=== PATIENT | female | born 1960 | race African-American/Black ===

== ENCOUNTER 2016-10-21 06:20 | Emergency (ER) | payer MEDICARE, OTHER ==
[~2016-10-21] VITALS: Ht 157.5 cm; Wt 56.2 kg
[~2016-10-21 06:20] MED LIST: ACET325T9 PO; ACYC400T PO; ALIS1TAB2 PO; AMOX1TAB11 PO; AZIT250T PO; BENZ200C39 PO; BUPR150T6 PO; CLON0.1T PO; CLON0.5T3 PO; GABA-586 PO; HYDR-971 PO; HYDR25TA PO; HYDR25TA9 PO; METH-37 PO; METO50TA2 PO; OMEP40CA5 PO; ONDA4TAB10 SL; OXCA300T PO; OXCA600T PO; PARO30TA3 PO; PRED20TA PO; SPIR25TA3 PO; ear drops
--- NOTE | 2016-10-21 07:52 | PHYS DOC ---
Past Medical History Past Medical History: Depression, Hypertension, Seizure Additional Past Medical Histor: brain aneursym, HERNIA, HERPES Past Surgical History: Other Additional Past Surgical Histo: brain aneurysm, hernia repair, nose surgery Alcohol Use: Occasionally Drug Use: None Adult General Chief Complaint Chief Complaint: MULTIPLE COMPLAINTS [facility] Patient is a 56 year old female who presents with multiple complaints today. C/ o bilateral foot pain and cramping for 2 months without injury. Reports she has seen her primary doctor for the same but would like an xray. Also c/o a yeast infection for weeks, stating she took Diflucan for 4 days at the beginning of Oct. Last sexual encounter 2 months ago. Denies abdominal pain, pelvic pain, urinary symptoms, fever, n/v/d. Review of Systems Review of Systems Constitutional: Denies fever or chills Eyes: Denies change in visual acuity, redness, or eye pain HENT: Denies nasal congestion or sore throat Respiratory: Denies cough or shortness of breath Cardiovascular: No additional information not addressed in HPI GI: Denies abdominal pain, nausea, vomiting, bloody stools or diarrhea : White vaginal discharge for weeks and itching. Musculoskeletal: Bilateral foot pain for 2 weeks. Integument: Denies rash or skin lesions Neurologic: Denies headache, focal weakness or sensory changes Endocrine: Denies polyuria or polydipsia Allergies Allergies Allergies Coded Allergies Type Severity Reaction Last Updated Verified phenobarbital Allergy Intermediate 05/25/16 Yes phenytoin Allergy Intermediate 05/25/16 No Physical Exam Physical Exam Constitutional: Well developed, well nourished, no acute distress, non-toxic appearance. Ambulatory without difficulty. HENT: Normocephalic, atraumatic, bilateral external ears normal, oropharynx moist, no oral exudates, nose normal. Eyes: PERRLA, EOMI, conjunctiva normal, no discharge. Neck: Normal range of motion, no tenderness, supple, no stridor. Cardiovascular:Heart rate regular rhythm, no murmur Lungs & Thorax: Bilateral breath sounds clear to auscultation Abdomen: Bowel sounds normal, soft, no tenderness, no masses, no pulsatile masses. Pelvic: No lesions present on external or internal genitalia. Moderate thin white discharge present on vaginal mccauley. OS closed and without erythema, no CMT. Skin: Warm, dry, no erythema, no rash. Back: No tenderness, no CVA tenderness. Extremities: No tenderness, no cyanosis, no clubbing, ROM intact, no edema. Neurologic: Alert and oriented X 3, normal motor function, normal sensory function, no focal deficits noted. Psychologic: Affect normal, judgement normal, mood normal. [] Current Patient Data Vital Signs Vital Signs Date Time Temp Pulse Resp B/P Pulse Ox O2 Delivery O2 Flow Rate FiO2 10/21/16 10:40 62 20 145/74 97 Room Air 10/21/16 07:40 97.6 97.6 Lab Values Laboratory Tests Test 10/21/16 07:50 10/21/16 08:30 Urine Collection Type Unknown Urine Color Yellow Urine Clarity Clear Urine pH 6.0 Urine Specific [place] 1.025 Urine Protein Negativemg/dL (NEG-TRACE) Urine Glucose (UA) Negativemg/dL (NEG) Urine Ketones (Stick) Negativemg/dL (NEG) Urine Blood Negative (NEG) Urine Nitrite Negative (NEG) Urine Bilirubin Negative (NEG) Urine Urobilinogen Dipstick 0.2mg/dL (0.2 mg/dL) Urine Leukocyte Esterase Negative (NEG) Urine RBC 1-2/HPF (0-2) Urine WBC 1-4/HPF (0-4) Urine Squamous Epithelial Cells Many/LPF Urine Bacteria Moderate/HPF (0-FEW) Urine Mucus Marked/LPF White Blood Count 6.5x10^3/uL (4.0-11.0) Red Blood Count 4.17x10^6/uL (3.50-5.40) Hemoglobin 13.6g/dL (12.0-15.5) Hematocrit 41.6% (36.0-47.0) Mean Corpuscular Volume 100fL (79-100) Mean Corpuscular Hemoglobin 33pg (25-35) Mean Corpuscular Hemoglobin Concent 33g/dL (31-37) Red Cell Distribution Width 14.3% (11.5-14.5) Platelet Count 193x10^3/uL (140-400) Neutrophils (%) (Auto) 43% (31-73) Lymphocytes (%) (Auto) 47% (24-48) Monocytes (%) (Auto) 7% (0-9) Eosinophils (%) (Auto) 2% (0-3) Basophils (%) (Auto) 1% (0-3) Neutrophils # (Auto) 2.8x10^3uL (1.8-7.7) Lymphocytes # (Auto) 3.0x10^3/uL (1.0-4.8) Monocytes # (Auto) 0.5x10^3/uL (0.0-1.1) Eosinophils # (Auto) 0.2x10^3/uL (0.0-0.7) Basophils # (Auto) 0.0x10^3/uL (0.0-0.2) Sodium Level 139mmol/L (136-145) Potassium Level 3.8mmol/L (3.5-5.1) Chloride Level 101mmol/L (98-107) Carbon Dioxide Level 29mmol/L (21-32) Anion Gap 9 (6-14) Blood Urea Nitrogen 21mg/dL (7-20) H Creatinine 0.8mg/dL (0.6-1.0) Estimated GFR (Cockcroft-Gault) 90.4 BUN/Creatinine Ratio 26 (6-20) H Glucose Level 97mg/dL (70-99) Calcium Level 9.1mg/dL (8.5-10.1) Total Bilirubin 0.2mg/dL (0.2-1.0) Aspartate Amino Transferase (AST) 24U/L (15-37) Alanine Aminotransferase (ALT) 26U/L (14-59) Alkaline Phosphatase 84U/L (46-116) Total Protein 7.8g/dL (6.4-8.2) Albumin 3.9g/dL (3.4-5.0) Albumin/Globulin Ratio 1.0 (1.0-1.7) Laboratory Tests 10/21/16 08:30 Laboratory Tests 10/21/16 08:30 Microbiology 10/21/16 Wet Prep - Final, Complete Microbiology 10/21/16 Wet Prep - Final, Complete EKG EKG [] Radiology/Procedures Radiology/Procedures [] Impressions: 1. Bacterial vaginosis 2. Bilateral foot pain Course & Med Decision Making Course & Med Decision Making Pertinent Labs and Imaging studies reviewed. (See chart for details) [] Dragon Disclaimer Dragon Disclaimer This electronic medical record was generated, in whole or in part, using a voice recognition dictation system. Departure Departure Impression: Primary Impression: Bacterial vaginosis Additional Impression: Bilateral foot pain Disposition: 01 HOME, SELF-CARE Condition: STABLE Referrals: ELGIN FLORES MD (PCP) Patient Instructions: Bacterial Vaginosis, [id number], Foot Sprain-Brief Additional Instructions: 1. Take all medication as directed. Follow up with your primary doctor regarding your foot pain. Return if any problems or concerns Scripts Metronidazole 500 Mg Tablet1 Tab PO BID #14 TAB Prov:PROMISE OSBORN APRN 10/21/16 Problem Qualifiers PROMISE OSBORN APRN Oct 21, 2016 07:52
[2016-10-21 08:11] LABS: BILIRUBIN,URINE NEGATIVE (NEG); GLUCOSE,URINE NEGATIVE (NEG); NITRITE,URINE NEGATIVE (NEG); PROTEIN,URINE NEGATIVE (NEG-TRACE); UROBILINOGEN,URINE 0.2 mg/dL (0.2 mg/dL)
[2016-10-21 08:18] LABS: BACTERIA,URINE MODERATE /HPF (0-FEW); SQUAMOUS EPITHELIAL CELL,UR MANY /LPF
--- NOTE | 2016-10-21 08:38 | RAD ---
Bilateral feet, 6 views, 10/21/2016: History: Foot pain No fracture or dislocation is identified. No destructive bony lesion is seen. There is moderate subcutaneous edema about both feet. IMPRESSION: No acute bony abnormality is detected.
[2016-10-21 08:47] LABS: BASO % 1 % (0-3); EOS % 2 % (0-3); HEMATOCRIT 41.6 % (36.0-47.0); HEMOGLOBIN 13.6 g/dL (12.0-15.5); LYMPH % 47 % (24-48); MEAN CORPUSCULAR HEMOGLOBIN 33 pg (25-35); MEAN CORPUSCULAR HGB CONC 33 g/dL (31-37); MEAN CORPUSCULAR VOLUME 100 fL (79-100); MONO % 7 % (0-9); NEUT % 43 % (31-73); PLATELET COUNT 193 x10^3/uL (140-400); RED BLOOD COUNT 4.17 x10^6/uL (3.50-5.40); RED CELL DISTRIBUTION WIDTH 14.3 % (11.5-14.5); WHITE BLOOD COUNT 6.5 x10^3/uL (4.0-11.0)
[2016-10-21 09:11] LABS: CALCIUM 9.1 mg/dL (8.5-10.1); CREATININE 0.8 mg/dL (0.6-1.0); GFR 90.4; POTASSIUM 3.8 mmol/L (3.5-5.1)
[2016-10-21 09:21] LABS: ALBUMIN 3.9 g/dL (3.4-5.0); TOTAL BILIRUBIN 0.2 mg/dL (0.2-1.0); TOTAL PROTEIN 7.8 g/dL (6.4-8.2)
[2016-10-21] MEDS ORDERED: METR500T4 PO (09:39)
[2016-10-21 10:40] VITALS: BP 145/74
== END 2016-10-21 10:45 | disposition home or self-care (01) ==
LOC: ER 06:20
DX: N76.0 Acute vaginitis (principal); M79.672 Pain in left foot; M79.671 Pain in right foot; I10 Essential (primary) hypertension; Z88.8 Allergy status to other drugs, medicaments and biological substances
CPT/HCPCS: 36415; 73630; 80053; 81001; 85027; 87086; 87491; 87591; 99285; Q0111

== ENCOUNTER 2016-12-06 08:21 | Emergency (ER) | payer MEDICARE, OTHER ==
[~2016-12-06 08:21] MED LIST changes: +METR500T4 PO
--- NOTE | 2016-12-06 08:56 | PHYS DOC ---
Past Medical History Past Medical History: Depression, Hypertension, Seizure Additional Past Medical Histor: brain aneursym, HERNIA, HERPES Past Surgical History: Other Additional Past Surgical Histo: brain aneurysm, hernia repair, nose surgery Additional Information: 1PPD. Alcohol Use: None Additional Information: "I don't drink anymore." Quit, "Months and months ago." Drug Use: None Adult General Chief Complaint Chief Complaint: GI PROBLEM HPI HPI Patient is a 56 year old female who presents with malodorous bowel movements and gas. Patient reports "for a long time" she has been having increased foul smell when having a bowel movement or passing gas. No change in frequency. No abdominal pain. She says she has seen her doctor for this but nothing has been done. Has seen a GI doctor in the past, and underwent both colonoscopy and endoscopy in 2016. In addition, patient says since yesterday she has also had foul smelling urine without dysuria. Review of Systems Review of Systems Constitutional: Denies fever or chills Respiratory: Denies cough or shortness of breath Cardiovascular: Denies chest pain GI: Malodorous bowel movements and flatus. Denies abdominal pain, nausea, vomiting, or diarrhea : Malodorous urine Musculoskeletal: Denies back pain or joint pain Neurologic: Denies headache, focal weakness or sensory changes Allergies Allergies Allergies Coded Allergies Type Severity Reaction Last Updated Verified phenobarbital Allergy Intermediate 05/25/16 Yes phenytoin Allergy Intermediate 05/25/16 No Physical Exam Physical Exam Constitutional: Well developed, well nourished, no acute distress, non-toxic appearance HENT: Normocephalic, atraumatic, bilateral external ears normal Eyes: EOMI, conjunctiva normal, no discharge Neck: Normal range of motion, no stridor Cardiovascular: Heart rate normal, regular rhythm, no murmur Lungs & Thorax: Bilateral breath sounds clear to auscultation Abdomen: Bowel sounds normal, soft, non-distended, no significant TTP, no rebound or guarding Skin: Warm, dry, no erythema, no rash Extremities: No obvious deformity, no edema Neurologic: Alert and oriented X 3, no gross deficits noted Current Patient Data Vital Signs Vital Signs Date Time Temp Pulse Resp B/P Pulse Ox O2 Delivery O2 Flow Rate FiO2 12/06/16 08:29 98.2 145/74 Room Air 98.2 Lab Values Laboratory Tests Test 12/06/16 08:55 Urine Collection Type Unknown Urine Color Yellow Urine Clarity Clear Urine pH 5.5 Urine Specific [place] 1.020 Urine Protein Negativemg/dL (NEG-TRACE) Urine Glucose (UA) Negativemg/dL (NEG) Urine Ketones (Stick) Negativemg/dL (NEG) Urine Blood Negative (NEG) Urine Nitrite Negative (NEG) Urine Bilirubin Negative (NEG) Urine Urobilinogen Dipstick 0.2mg/dL (0.2 mg/dL) Urine Leukocyte Esterase Negative (NEG) Urine RBC 0/HPF (0-2) Urine WBC 0/HPF (0-4) Urine Squamous Epithelial Cells Mod/LPF Urine Bacteria 0/HPF (0-FEW) Urine Mucus Slight/LPF EKG EKG [] Radiology/Procedures Radiology/Procedures [] Course & Med Decision Making Course & Med Decision Making Pertinent Labs and Imaging studies reviewed. (See chart for details) Patient is 56 year old female who presents with malodorous BMs and urine. Will not pursue workup for GI complaint. We will send UA to r/o UTI. I discussed follow up with PCP for BM complaint and she can be referred to GI if needed. UA shows no evidence of UTI. Discussed results with patient. Discharged home with instructions for follow up and return precautions. Dragon Disclaimer Dragon Disclaimer This electronic medical record was generated, in whole or in part, using a voice recognition dictation system. Departure Departure Impression: Primary Impression: Strong odor of stools Additional Impression: Malodorous urine Disposition: 01 HOME, SELF-CARE Condition: STABLE Referrals: ELGIN FLORES MD (PCP) Additional Instructions: Thank you for allowing us to provide care today in the Emergency Department. Consider eating yogurt or taking a probiotic (available over the counter at drug stores) to help with your bowel movements. Schedule a follow up appointment with your primary care doctor. Return promptly to the Emergency Department if you develop any new or concerning symptoms. Problem Qualifiers RIDGE COVARRUBIAS MD Dec 06, 2016 08:56
[2016-12-06 09:11] LABS: BILIRUBIN,URINE NEGATIVE (NEG); GLUCOSE,URINE NEGATIVE (NEG); NITRITE,URINE NEGATIVE (NEG); PH,URINE 5.5; PROTEIN,URINE NEGATIVE (NEG-TRACE); UROBILINOGEN,URINE 0.2 mg/dL (0.2 mg/dL)
[2016-12-06 09:30] VITALS: BP 143/77
[2016-12-06 09:32] LABS: BACTERIA,URINE 0 /HPF (0-FEW); RBC,URINE 0 /HPF (0-2); SQUAMOUS EPITHELIAL CELL,UR MOD /LPF; WBC,URINE 0 /HPF (0-4)
== END 2016-12-06 09:49 | disposition home or self-care (01) ==
LOC: ER 08:21
DX: R19.5 Other fecal abnormalities (principal); R82.99 Other abnormal findings in urine; I10 Essential (primary) hypertension; F32.9 Major depressive disorder, single episode, unspecified; I67.1 Cerebral aneurysm, nonruptured; F17.200 Nicotine dependence, unspecified, uncomplicated; Z88.8 Allergy status to other drugs, medicaments and biological substances; Z88.4 Allergy status to anesthetic agent
CPT/HCPCS: 81001; 99283

== ENCOUNTER 2017-02-04 07:01 | Emergency (ER) | payer MEDICARE, OTHER ==
[~2017-02-04] VITALS: Ht 157.5 cm; Wt 56.2 kg
[2017-02-04] MEDS ORDERED: AZITHROMYCIN 250 MG TABLET. PO ONE (08:00)
[2017-02-04] MEDS ORDERED: metroNIDAZOLE 500 MG TABLET PO ONE (08:00)
[2017-02-04] MEDS ORDERED: cefTRIAXone IM 250 MG VIAL IM ONE (08:00)
--- NOTE | 2017-02-04 08:03 | PHYS DOC ---
Past Medical History Past Medical History: Depression, Hypertension, Seizure Additional Past Medical Histor: brain aneursym, HERNIA, HERPES Past Surgical History: Other Additional Past Surgical Histo: brain aneurysm, hernia repair, nose surgery Alcohol Use: None Drug Use: None Adult General Chief Complaint Chief Complaint: VAGINAL PROBLEM HPI HPI Patient is a 56 year old female with history of seizures, hypertension, CVA, full hysterectomy, smoking, who presents today with bilateral flank pain mild in nature for 3 days and vaginal discharge for 3 days. Patient states she is concerned about STDs because her partner came home and told patient he had sexual intercourse with another female partner. Patient would like to be tested and treated for STDs. Patient denies any fever. Denies any urgency frequency or dysuria. Denies any hematuria. Review of Systems Review of Systems Constitutional: See history of present illness Eyes: Denies change in visual acuity, redness, or eye pain [] HENT: Denies nasal congestion or sore throat [] Respiratory: Denies cough or shortness of breath [] Cardiovascular: No additional information not addressed in HPI [] GI: Vaginal discharge and concern for STDs : Bilateral flank pain Musculoskeletal: Denies back pain or joint pain [] Integument: Denies rash or skin lesions [] Neurologic: Denies headache, focal weakness or sensory changes [] Endocrine: Denies polyuria or polydipsia [] Current Medications Current Medications Current Medications Medications (Trade) Dose Ordered Sig/Mayank Start Time Stop Time Status Last Admin Dose Admin Acetaminophen/ Hydrocodone Bitart (Lortab 5/325) 2 tab 1X ONCE 02/04/17 08:30 02/04/17 08:31 UNV Azithromycin (Zithromax) 1,000 mg 1X ONCE 02/04/17 08:00 02/04/17 08:01 DC 02/04/17 08:15 1,000 MG Ceftriaxone Sodium (Rocephin Im) 250 mg 1X ONCE 02/04/17 08:00 02/04/17 08:01 DC 02/04/17 08:15 250 MG Metronidazole (Flagyl) 2,000 mg 1X ONCE 02/04/17 08:00 02/04/17 08:01 DC 02/04/17 08:15 2,000 MG Allergies Allergies Allergies Coded Allergies Type Severity Reaction Last Updated Verified phenobarbital Allergy Intermediate 05/25/16 Yes phenytoin Allergy Intermediate 05/25/16 No Physical Exam Physical Exam Constitutional: Well developed, well nourished, no acute distress, non-toxic appearance. [] HENT: Normocephalic, atraumatic, bilateral external ears normal, oropharynx moist, no oral exudates, nose normal. [] Eyes: PERRLA, EOMI, conjunctiva normal, no discharge. [] Neck: Normal range of motion, no tenderness, supple, no stridor. [] Cardiovascular:Heart rate regular rhythm, no murmur [] Lungs & Thorax: Bilateral breath sounds clear to auscultation [] Abdomen: Bowel sounds normal, soft, no tenderness, no masses, no pulsatile masses. [] External pelvic appears normal. No cervix. No CMT. No adnexal tenderness. Small amount of white discharge in the vaginal vault. Skin: Warm, dry, no erythema, no rash. [] Back: No tenderness, mild bilateral CVA tenderness. [] Extremities: No tenderness, no cyanosis, no clubbing, ROM intact, no edema. [] Neurologic: Alert and oriented X 3, normal motor function, normal sensory function, no focal deficits noted. [] Psychologic: Affect normal, judgement normal, mood normal. [] Current Patient Data Vital Signs Vital Signs Date Time Temp Pulse Resp B/P (MAP) Pulse Ox O2 Delivery O2 Flow Rate FiO2 02/04/17 07:54 98.5 59 16 143/88 (106) 97 Room Air 98.5 Lab Values Laboratory Tests Test 02/04/17 07:10 02/04/17 08:00 Urine Collection Type Void Urine Color [place] Urine Clarity Clear Urine pH 7.0 Urine Specific [place] >=1.030 Urine Protein 30 mg/dL (NEG-TRACE) Urine Glucose (UA) Negative mg/dL (NEG) Urine Ketones (Stick) Negative mg/dL (NEG) Urine Blood Negative (NEG) Urine Nitrite Negative (NEG) Urine Bilirubin Negative (NEG) Urine Urobilinogen Dipstick 1.0 mg/dL (0.2 mg/dL) Urine Leukocyte Esterase Small (NEG) Urine RBC Occ /HPF (0-2) Urine WBC 1-4 /HPF (0-4) Urine Squamous Epithelial Cells Mod /LPF Urine Bacteria 0 /HPF (0-FEW) Urine Mucus Mod /LPF Urine Opiates Screen Pos (NEG) Urine Methadone Screen Neg (NEG) Urine Barbiturates Neg (NEG) Urine Phencyclidine Screen Neg (NEG) Urine Amphetamine/Methamphetamine Neg (NEG) Urine Benzodiazepines Screen Neg (NEG) Urine Cocaine Screen Neg (NEG) Urine Cannabinoids Screen Neg (NEG) Urine Ethyl Alcohol Neg (NEG) White Blood Count 6.0 x10^3/uL (4.0-11.0) Red Blood Count 3.99 x10^6/uL (3.50-5.40) Hemoglobin 13.5 g/dL (12.0-15.5) Hematocrit 39.9 % (36.0-47.0) Mean Corpuscular Volume 100 fL (79-100) Mean Corpuscular Hemoglobin 34 pg (25-35) Mean Corpuscular Hemoglobin Concent 34 g/dL (31-37) Red Cell Distribution Width 14.1 % (11.5-14.5) Platelet Count 218 x10^3/uL (140-400) Neutrophils (%) (Auto) 43 % (31-73) Lymphocytes (%) (Auto) 49 % (24-48) H Monocytes (%) (Auto) 6 % (0-9) Eosinophils (%) (Auto) 2 % (0-3) Basophils (%) (Auto) 1 % (0-3) Neutrophils # (Auto) 2.6 x10^3uL (1.8-7.7) Lymphocytes # (Auto) 2.9 x10^3/uL (1.0-4.8) Monocytes # (Auto) 0.3 x10^3/uL (0.0-1.1) Eosinophils # (Auto) 0.1 x10^3/uL (0.0-0.7) Basophils # (Auto) 0.0 x10^3/uL (0.0-0.2) Sodium Level 141 mmol/L (136-145) Potassium Level 4.0 mmol/L (3.5-5.1) Chloride Level 105 mmol/L (98-107) Carbon Dioxide Level 31 mmol/L (21-32) Anion Gap 5 (6-14) L Blood Urea Nitrogen 17 mg/dL (7-20) Creatinine 0.7 mg/dL (0.6-1.0) Estimated GFR (Cockcroft-Gault) 105.5 BUN/Creatinine Ratio 24 (6-20) H Glucose Level 89 mg/dL (70-99) Calcium Level 9.1 mg/dL (8.5-10.1) Total Bilirubin 0.2 mg/dL (0.2-1.0) Aspartate Amino Transferase (AST) 38 U/L (15-37) H Alanine Aminotransferase (ALT) 40 U/L (14-59) Alkaline Phosphatase 90 U/L (46-116) Total Protein 7.6 g/dL (6.4-8.2) Albumin 3.9 g/dL (3.4-5.0) Albumin/Globulin Ratio 1.1 (1.0-1.7) Lipase 74 U/L (73-393) Ethyl Alcohol Level < 10 mg/dL (0-10) Laboratory Tests 02/04/17 08:00 Laboratory Tests 02/04/17 08:00 Microbiology 02/04/17 Wet Prep - Final, Complete EKG EKG [] Radiology/Procedures Radiology/Procedures [] Course & Med Decision Making Course & Med Decision Making Pertinent Labs and Imaging studies reviewed. (See chart for details) Patient is in the ED with flank pain, vaginal discharge and concern for STDs. Patient is a smoker, we encouraged her to consider smoking cessation. Cultures were obtained. Labs were drawn as well as CT of the abdomen and pelvic to rule out kidney stones. Patient was treated prophylaxis in the ED with Flagyl Rocephin and azithromycin. Urine positive for small amount of leukocytes but appears contaminated, it has been difficult to follow up with cultures due to IT communication issues with the lab. Patient we discharged Bactrim. Wet prep positive for bacterial vaginosis, patient will be discharged with Flagyl. CT of the abdomen and pelvic was negative for any acute findings. I recommended she follows up with her own PCP in the next 7 days. Discharged with instructions to push fluids. Dragon Disclaimer Dragon Disclaimer This electronic medical record was generated, in whole or in part, using a voice recognition dictation system. Departure Departure Impression: Primary Impression: Smoking addiction Additional Impressions: Concern about STD in female without diagnosis Flank pain, acute Urinary tract infection Bacterial vaginosis Disposition: 01 HOME, SELF-CARE Condition: STABLE Referrals: FAISLA ALVARADO APRN (PCP) Follow-up with your doctor in the next 1-7 days Patient Instructions: Bacterial Vaginosis, [id number], Flank Pain, Easy-to- Read, Smoking Cessation, Urinary Tract Infection Additional Instructions: You were treated prophylaxis for STDs. We highly recommend you contact all your sex partners, let them know you treated for STDs and ask them to seek treatment too. Do not have sex for week. Use protection at all time. He also tested positive for urinary tract infection, we sent you home with antibiotics. Take them as prescribed. He also are positive for bacterial vaginosis. This is not an STD. We sent you home with antibiotics to clear this infection. We sent you home with a prescription for fluconazole for prevention of yeast infection. Push fluids. Take the prescribed pain medicine as needed. Scripts Fluconazole (DIFLUCAN) 150 Mg Tablet 150 MG PO DAILY, #2 TAB Take one today and repeat in one week Prov: LYLY FLOREZ APRN 02/04/17 Metronidazole (FLAGYL) 500 Mg Tablet 1 TAB PO BID, #10 TAB Prov: LYLY FLOREZ APRN 02/04/17 Tramadol Hcl (ULTRAM) 50 Mg Tablet 1 TAB PO Q6HRS, #30 TAB Prov: LYLY FLOREZ APRN 02/04/17 Sulfamethoxazole/Trimethoprim (BACTRIM DS TABLET) 1 Each Tablet 1 TAB PO BID, #6 TAB Prov: LYLY FLOREZ APRN 02/04/17 Problem Qualifiers Additional Impressions: Urinary tract infection Urinary tract infection type: acute cystitis Hematuria presence: without hematuria Qualified Codes: N30.00 - Acute cystitis without hematuria LYLY FLOREZ APRN Feb 04, 2017 08:03
[2017-02-04 08:15] LABS: BASO % 1 % (0-3); EOS % 2 % (0-3); HEMATOCRIT 39.9 % (36.0-47.0); HEMOGLOBIN 13.5 g/dL (12.0-15.5); LYMPH # 2.9 x10^3/uL (1.0-4.8); LYMPH % 49 % (24-48); MEAN CORPUSCULAR HEMOGLOBIN 34 pg (25-35); MEAN CORPUSCULAR HGB CONC 34 g/dL (31-37); MEAN CORPUSCULAR VOLUME 100 fL (79-100); MONO % 6 % (0-9); NEUT % 43 % (31-73); PLATELET COUNT 218 x10^3/uL (140-400); RED BLOOD COUNT 3.99 x10^6/uL (3.50-5.40); RED CELL DISTRIBUTION WIDTH 14.1 % (11.5-14.5)
[2017-02-04 08:22] LABS: CALCIUM 9.1 mg/dL (8.5-10.1); CREATININE 0.7 mg/dL (0.6-1.0); GFR 105.5
[2017-02-04 08:24] LABS: BILIRUBIN,URINE NEGATIVE (NEG); GLUCOSE,URINE NEGATIVE (NEG); NITRITE,URINE NEGATIVE (NEG); PROTEIN,URINE 30 mg/dL (NEG-TRACE)
[2017-02-04] MEDS ORDERED: HYDROcodone/APAP 5/325MG 1 TAB TABLET PO ONE (08:30)
[2017-02-04 08:31] LABS: BARBITURATES NEG (NEG); BENZODIAZEPINES NEG (NEG); CANNABINOIDS NEG (NEG); COCAINE NEG (NEG); METHADONE NEG (NEG); OPIATES POS (NEG); PHENCYCLIDINE NEG (NEG)
[2017-02-04 08:32] LABS: BACTERIA,URINE 0 /HPF (0-FEW); RBC,URINE OCC /HPF (0-2); SQUAMOUS EPITHELIAL CELL,UR MOD /LPF
[2017-02-04 08:34] LABS: ALBUMIN 3.9 g/dL (3.4-5.0); ALBUMIN/GLOBULIN RATIO 1.1 (1.0-1.7); TOTAL BILIRUBIN 0.2 mg/dL (0.2-1.0); TOTAL PROTEIN 7.6 g/dL (6.4-8.2)
--- NOTE | 2017-02-04 09:09 | RAD ---
Indication bilateral flank pain. Axial images through the abdomen and pelvis were obtained. The examination was tailored for the detection of renal and/or ureteral calculi. No IV or gastrointestinal contrast was administered. Note is made of a prior examination of the abdomen and pelvis 06/04/2016. There is some minimal volume loss at the lung bases likely reflecting atelectasis or scar. A definite significant finding at either lung base is not seen. The liver and spleen appear unremarkable. The gallbladder appears grossly normal. No definite pancreatic pathology is seen. No adrenal masses are seen. There are no renal calculi on either side. No definite renal mass is seen. There is no hydronephrosis hydroureter or calcification seen along the course of either ureter. There are multiple calcifications in the pelvis compatible with phleboliths. A calcification is noted adjacent to the right ureter, image 79 series 2, but this is clearly demonstrated to be outside the course of the ureteral as demonstrated on the prior study 05/24/2015. An acute finding in the abdomen is not apparent. No acute finding is seen in the pelvis. Occasional diverticula are seen associated with the large bowel. IMPRESSION: No acute finding seen in the abdomen or pelvis PQRS Compliance Statement: One or more of the following individualized dose reduction techniques were utilized for this examination: 1. Automated exposure control 2. Adjustment of the mA and/or kV according to patient size 3. Use of iterative reconstruction technique
[2017-02-04 09:14] VITALS: BP 104/59
[2017-02-04] MEDS ORDERED: SULF1TAB24 PO (09:31)
[2017-02-04] MEDS ORDERED: TRAM-29 PO (09:31)
[2017-02-04] MEDS ORDERED: FLUC150T PO (09:31)
[2017-02-04] MEDS ORDERED: METR500T PO (09:31)
== END 2017-02-04 09:52 | disposition home or self-care (01) ==
LOC: ER 07:01
DX: R10.9 Unspecified abdominal pain (principal); N89.8 Other specified noninflammatory disorders of vagina; N30.00 Acute cystitis without hematuria; N76.0 Acute vaginitis; F17.200 Nicotine dependence, unspecified, uncomplicated; F32.9 Major depressive disorder, single episode, unspecified; I10 Essential (primary) hypertension; Z86.73 Personal history of transient ischemic attack (TIA), and cerebral infarction without residual deficits; Z88.8 Allergy status to other drugs, medicaments and biological substances
CPT/HCPCS: 36415; 74176; 80053; 80305; 80320; 81001; 83690; 85027; 87086; 87491; 87591; 96372; 99285; J0696; Q0111; Q0144; 87186; G0480; G0481

== ENCOUNTER → 2017-03-23 | Outpatient (CLI) | payer MEDICARE, OTHER ==
[~2017-03-23] MED LIST changes: -BENZ200C39 PO; +BENZ200C47 PO; +CONTRAST GIVEN MC PRN; +FLUC150T PO; +IOHEXOL 240 MG/ML 50ML VIAL. PO ONE; +IOHEXOL 300 MG/ML 75 ML VIAL IV ONE; +METR500T PO; -METR500T4 PO; +METR500T8 PO; +SULF1TAB24 PO; +TRAM-48 PO
--- NOTE | 2017-03-23 10:43 | RAD ---
Indication abdominal pain vomiting. Chronic. Axial images of the abdomen and pelvis were obtained. Both IV and oral contrast were administered. Approximately 75 cc of Omnipaque 300 was administered intravenously. Note is made of a previous examination 02/04/2017. The lung bases are clear. The liver appears unremarkable. There is a low-density subcentimeter mass in the spleen. This is likely incidental probably reflecting a small cyst. A definite significant finding in the spleen is not seen. The gallbladder appears grossly normal. No pancreatic abnormality is seen. There are no adrenal masses and the kidneys appear normal. Significant central or retroperitoneal adenopathy in the abdomen is not seen. No acute finding is apparent. No mass inflammatory process or significant finding in the pelvis seen. IMPRESSION: No acute or significant finding seen in the abdomen or pelvis. PQRS Compliance Statement: One or more of the following individualized dose reduction techniques were utilized for this examination: 1. Automated exposure control 2. Adjustment of the mA and/or kV according to patient size 3. Use of iterative reconstruction technique
== END | disposition home or self-care (01) ==
LOC: CT 08:51
PROVIDERS: ATTEND Internal Medicine Gastroenterology
DX: R10.9 Unspecified abdominal pain (principal); R11.10 Vomiting, unspecified
CPT/HCPCS: 74177; Q9966; Q9967

== ENCOUNTER 2017-09-18 08:06 | Emergency (ER) | payer MEDICARE, OTHER ==
[2017-09-18] MEDS: IPRATRPIUM/ALBUTEROL 0.5/2.5MG 3 ML NEBU. NEB (08:42)
== END 2017-09-18 09:48 | disposition home or self-care (01) ==
LOC: ER 08:06
DX: R05 Cough (principal); R09.89 Other specified symptoms and signs involving the circulatory and respiratory systems; R50.9 Fever, unspecified; F32.9 Major depressive disorder, single episode, unspecified; I10 Essential (primary) hypertension; F17.200 Nicotine dependence, unspecified, uncomplicated; I67.1 Cerebral aneurysm, nonruptured; Z88.4 Allergy status to anesthetic agent; Z88.8 Allergy status to other drugs, medicaments and biological substances
CPT/HCPCS: 71046; 94640; 99284-25; J7620

== ENCOUNTER 2017-10-08 15:12 | Emergency (ER) | payer MEDICARE, OTHER ==
[2017-10-08 15:57] LABS: BILIRUBIN,URINE NEGATIVE (NEG); CLARITY,URINE CLEAR; COLOR,URINE YELLOW; GLUCOSE,URINE NEGATIVE (NEG); NITRITE,URINE NEGATIVE (NEG); PROTEIN,URINE NEGATIVE (NEG-TRACE)
[2017-10-08] MEDS: FLUCONAZOLE 100 MG TABLET. PO ×2 (16:02)
[2017-10-08] MEDS: FAMOTIDINE 20 MG TABLET. PO ×2 (16:02)
[2017-10-08 16:09] LABS: BACTERIA,URINE 0 /HPF (0-FEW); SQUAMOUS EPITHELIAL CELL,UR MOD /LPF
== END 2017-10-08 17:10 | disposition home or self-care (01) ==
LOC: ER 15:12
DX: R10.30 Lower abdominal pain, unspecified (principal); B37.3 Candidiasis of vulva and vagina; I10 Essential (primary) hypertension; Z90.710 Acquired absence of both cervix and uterus; Z88.8 Allergy status to other drugs, medicaments and biological substances
CPT/HCPCS: 81001; 99284

== ENCOUNTER 2017-12-03 11:48 | Emergency (ER) | payer MEDICARE, OTHER | END 2017-12-03 13:20 | disposition home or self-care (01) | LOC: ER 11:48 | DX: J20.9 Acute bronchitis, unspecified (principal); K59.00 Constipation, unspecified; H92.01 Otalgia, right ear; F17.200 Nicotine dependence, unspecified, uncomplicated; I10 Essential (primary) hypertension; Z88.8 Allergy status to other drugs, medicaments and biological substances | CPT/HCPCS: 74022; 99284 ==

== ENCOUNTER 2018-12-28 10:25 | Emergency (ER) | payer MEDICARE, OTHER ==
[~2018-12-28] VITALS: Ht 157.5 cm; Wt 59.0 kg
[~2018-12-28 10:25] MED LIST changes: +ALBU2.5V8 INH; +BENZ100C PO; +CLON0.5T11 PO; -CLON0.5T3 PO; -CONTRAST GIVEN MC PRN; +FLUT9.9S NS; -GABA-586 PO; +GABA300C18 PO; +HYDR-2145 PO; +HYDR-3164 PO; -HYDR-971 PO; -HYDR25TA9 PO; -IOHEXOL 240 MG/ML 50ML VIAL. PO ONE; -IOHEXOL 300 MG/ML 75 ML VIAL IV ONE; +MAGN296S9 PO; -METO50TA2 PO; +METO50TA6 PO; +METR-34 PO; -METR500T8 PO; +OMEP20TA63 PO; -OXCA300T PO; +OXCA300T19 PO; -OXCA600T PO; +OXCA600T9 PO; +POLY17PO29 PO; +PRED50TA PO; -SPIR25TA3 PO; +SPIR25TA5 PO; +VENTOLIN HFA18 GM INH
[2018-12-28 12:22] LABS: BILIRUBIN,URINE NEGATIVE (NEG); CLARITY,URINE CLEAR; COLOR,URINE YELLOW; NITRITE,URINE NEGATIVE (NEG); PH,URINE 7.5; PROTEIN,URINE NEGATIVE (NEG-TRACE); UROBILINOGEN,URINE 0.2 mg/dL (0.2 mg/dL)
[2018-12-28 12:31] LABS: SQUAMOUS EPITHELIAL CELL,UR MOD /LPF
[2018-12-28 12:32] LABS: BACTERIA,URINE FEW /HPF (0-FEW)
--- NOTE | 2018-12-28 14:06 | PHYS DOC ---
Past Medical History Past Medical History: Depression, Hypertension, Seizure Additional Past Medical Histor: brain aneursym, HERNIA, HERPES Past Surgical History: Hysterectomy, Other Additional Past Surgical Histo: brain aneurysm, hernia repair, nose surgery Alcohol Use: None Drug Use: None Adult General Chief Complaint Chief Complaint: VAGINAL PROBLEM HPI HPI 58-year-old female presents to ER for complaints of vaginal discharge and irritation, right lower back pain, and dysuria for the past 2-4 days. She reports she has concerned she might be developing an abscess in her genitals. She denies fever, hematuria, or abnormal vaginal bleeding. She reports she has had unprotected sex and has had bacterial infections in the past. Patient has history of hysterectomy. Review of Systems Review of Systems Constitutional: Denies fever or chills [] Eyes: Denies change in visual acuity, redness, or eye pain [] HENT: Denies nasal congestion or sore throat [] Respiratory: Denies cough or shortness of breath [] Cardiovascular: No additional information not addressed in HPI [] GI: Denies abdominal pain, nausea, vomiting, bloody stools or diarrhea. : Denies hematuria. Reports dysuria and vaginal discharge. Denies abnorm. vag bleeding w/odor. Reports lt side vaginal irritation concerns for abscess Musculoskeletal: Denies joint pain. Reports rt flank pain Integument: Denies rash or skin lesions [] Neurologic: Denies headache, focal weakness or sensory changes [] Endocrine: Denies polyuria or polydipsia [] All other systems were reviewed and found to be within normal limits, except as documented in this note. Current Medications Current Medications Current Medications Medications (Trade) Dose Ordered Sig/Mayank Start Time Stop Time Status Last Admin Dose Admin Ibuprofen (Motrin) 600 mg 1X ONCE 12/28/18 14:15 12/28/18 14:16 DC 12/28/18 14:15 600 MG Metronidazole (Flagyl) 2,000 mg 1X ONCE 12/28/18 15:15 12/28/18 15:16 DC 12/28/18 15:21 2,000 MG Ondansetron HCl (Zofran Odt) 4 mg 1X ONCE 12/28/18 15:15 12/28/18 15:16 DC 12/28/18 15:20 4 MG Allergies Allergies Allergies Coded Allergies Type Severity Reaction Last Updated Verified phenobarbital Allergy Intermediate 05/25/16 Yes phenytoin Allergy Intermediate 05/25/16 No Physical Exam Physical Exam Constitutional: Well developed, well nourished, no acute distress, non-toxic appearance. [] HENT: Normocephalic, atraumatic, bilateral external ears normal, oropharynx moist, no oral exudates, nose normal. [] Eyes: PERRLA, EOMI, conjunctiva normal, no discharge. [] Neck: Normal range of motion, no tenderness, supple, no stridor. [] Cardiovascular:Heart rate regular rhythm, no murmur [] Lungs & Thorax: Bilateral breath sounds clear to auscultation [] Abdomen: Bowel sounds normal, soft, no tenderness, no masses, no pulsatile masses. [] Skin: Warm, dry, no erythema, no rash. [] Back: No tenderness, no CVA tenderness. [] Extremities: No tenderness, no cyanosis, no clubbing, ROM intact, no edema. [] Neurologic: Alert and oriented X 3, normal motor function, normal sensory function, no focal deficits noted. [] Psychologic: Affect normal, judgement normal, mood normal. [] Pelvic Exam: EDT [employer] present 1400 Abdomen: Nontender External Genitalia: Normal Skin- no lesions/rash or palp. abscess Speculum: Normal vaginal mucosa, moderate amt thick yellow foul odor discharge Bimanual: No masses or tenderness Current Patient Data Vital Signs Vital Signs Date Time Temp Pulse Resp B/P (MAP) Pulse Ox O2 Delivery O2 Flow Rate FiO2 12/28/18 15:59 69 16 167/87 (113) 95 Room Air 12/28/18 10:25 97.7 97.7 Lab Values Laboratory Tests Test 12/28/18 11:25 12/28/18 14:01 Urine Collection Type Unknown Urine Color Yellow Urine Clarity Clear Urine pH 7.5 Urine Specific Roxie 1.015 Urine Protein Negative mg/dL (NEG-TRACE) Urine Glucose (UA) Negative mg/dL (NEG) Urine Ketones (Stick) Negative mg/dL (NEG) Urine Blood Negative (NEG) Urine Nitrite Negative (NEG) Urine Bilirubin Negative (NEG) Urine Urobilinogen Dipstick 0.2 mg/dL (0.2 mg/dL) Urine Leukocyte Esterase Negative (NEG) Urine RBC 6-10 /HPF (0-2) Urine WBC 1-4 /HPF (0-4) Urine Squamous Epithelial Cells Mod /LPF Urine Bacteria Few /HPF (0-FEW) Chlamydia DNA Probe Negative (Negative) Neisseria gonorrhoeae DNA Probe Negative (Negative) Microbiology 12/28/18 Wet Prep - Final, Complete EKG EKG [] Radiology/Procedures Radiology/Procedures [] Course & Med Decision Making Course & Med Decision Making Pertinent Labs reviewed. (See chart for details) Pt was evaluated in the ER for complaints of vaginal discharge and irritation in her genitals. Patient reported dysuria and lower back pain. UA was obtained exam was complete. Patient's GC and chlamydia pending at time of discharge discussion. Discussed prophylactic treatment as patient had moderate amount of yellow discharge in vaginal vault with followed her. Patient did not want prophylactic treatment for pending tests- was agreeable with PO flagyl while in the ER. She was provided with dose of ibuprofen and pretx'd with Zofran ODT prior to her antibiotics. Pt was afebrile. She requested prescription for Diflucan as she tends to get yeast infections following antibiotic treatment. Discussed follow-up with her [employer] and or primary care physician for reevaluation and retest. UA neg. for leuks/nitrates. Discussed safe sex and condom use until reevaluation and retest to ensure infection treated. Education provided on signs and symptoms to return to ER. Discharge instructions were discussed. Dragon Disclaimer Dragon Disclaimer This electronic medical record was generated, in whole or in part, using a voice recognition dictation system. Departure Departure Impression: Primary Impression: Bacterial vaginosis Disposition: HOME, SELF-CARE Condition: STABLE Referrals: ELGIN FLORES MD (PCP) Patient Instructions: Bacterial Vaginosis Additional Instructions: You were treated with a dose of Flagyl while in the ER. Your swabs for gonorrhea and chlamydia are pending he should follow-up on those in 2-3 days. You can take Tylenol and/or ibuprofen as needed for pain relief as directed on container. Scripts Fluconazole (DIFLUCAN) 100 Mg Tablet 100 MG PO DAILY, #1 TAB 1 Refill If symptoms do not improve you can refill prescription and one week and retake a dose Prov: ARELIS JIMENEZ APRN 12/28/18 ARELIS JIMENEZ APRN Dec 28, 2018 14:06
[2018-12-28] MEDS ORDERED: IBUPROFEN 200 MG TABLET. PO ONE (14:15)
[2018-12-28] MEDS ORDERED: metroNIDAZOLE 500 MG TABLET PO ONE (15:15)
[2018-12-28] MEDS ORDERED: ONDANSETRON ODT 4 MG TAB.RAPDIS. PO ONE (15:15)
[2018-12-28] MEDS ORDERED: FLUC100T7 PO (15:25)
[2018-12-28 15:59] VITALS: BP 167/87
[2018-12-29 13:17] LABS: GC PROBE Negative (Negative)
== END 2018-12-28 15:59 | disposition home or self-care (01) ==
LOC: ER 10:25
DX: N76.0 Acute vaginitis (principal); B96.89 Other specified bacterial agents as the cause of diseases classified elsewhere; F32.9 Major depressive disorder, single episode, unspecified; I10 Essential (primary) hypertension; Z90.710 Acquired absence of both cervix and uterus; Z88.8 Allergy status to other drugs, medicaments and biological substances
CPT/HCPCS: 81001; 87491; 87591; 99284; Q0111; Q0162